=== PATIENT | male | born 1990 | race Caucasian/White ===

== ENCOUNTER 2018-09-26 01:40 | Emergency (ER) | payer SELFPAY ==
[~2018-09-26] VITALS: Ht 182.9 cm; Wt 81.6 kg
[2018-09-26] MEDS ORDERED: ALPRAZOLAM 0.5 MG TABLET ONE (02:30)
[2018-09-26] MEDS ORDERED: ALPRAZOLAM 0.25 MG TABLET ONE (02:30)
[2018-09-26] MEDS ORDERED: ALPRAZOLAM 0.25 MG TABLET PO ONE (02:30)
--- NOTE | 2018-09-26 02:33 | NUR ---
Patient discharged to home in stable conditon. Written and verbal after care instructions given. Patient verbalizes understanding of instructions.
[2018-09-26 02:34] VITALS: BP 141/91
== END 2018-09-26 02:35 | disposition home or self-care (01) ==
LOC: ER 01:48
DX: F15.93 Other stimulant use, unspecified with withdrawal (principal); Z76.5 Malingerer [conscious simulation]
CPT/HCPCS: A4663